=== PATIENT | female | born 2000 | race Caucasian/White ===

== ENCOUNTER 2022-03-15 19:08 | Outpatient (CLI) ==
[~2022-03-15] VITALS: Ht 182.9 cm; Wt 102.2 kg
[2022-03-15 19:28] VITALS: BP 114/51
[2022-03-15 20:56] LABS: AMPHETAMINES URINE REFLEX NEGATIVE (NEGATIVE); BARBITURATES URINE REFLEX NEGATIVE (NEGATIVE); BENZODIAZEPINES URINE REFLEX NEGATIVE (NEGATIVE); CANNABINOIDS URINE REFLEX NEGATIVE (NEGATIVE); COCAINE METABOLITE URINE REFLE NEGATIVE (NEGATIVE); METHADONE URINE REFLEX NEGATIVE (NEGATIVE); OPIATES URINE REFLEX NEGATIVE (NEGATIVE); PHENCYCLIDINE URINE REFLEX NEGATIVE (NEGATIVE)
[2022-03-15] MEDS ORDERED: CYCLOBENZAPRINE 5MG TABLET PO ONE (21:00)
== END 2022-03-15 21:02 | disposition home or self-care (01) ==
LOC: M LDO 19:08
PROVIDERS: ATTEND Obstetrics & Gynecology
DX: O26.893 Other specified pregnancy related conditions, third trimester (principal); Z3A.30 30 weeks gestation of pregnancy; R10.2 Pelvic and perineal pain
CPT/HCPCS: 59025; 76815; 80307; 81001; 87086; G0463

== ENCOUNTER 2022-05-13 19:46 | Outpatient (CLI) | payer OTHER ==
[~2022-05-13] VITALS: Ht 182.9 cm; Wt 111.4 kg
[2022-05-13 20:08] VITALS: BP 111/78
[2022-05-13] MEDS ORDERED: PNVTAB4 PO (22:01)
[2022-05-13] MEDS ORDERED: HOME MED LIST COMPLETE! XX SCH (22:05)
== END 2022-05-13 21:53 | disposition home or self-care (01) ==
LOC: M LDO 19:46
PROVIDERS: ATTEND Obstetrics & Gynecology
DX: O36.8130 Decreased fetal movements, third trimester, not applicable or unspecified (principal); Z3A.39 39 weeks gestation of pregnancy

== ENCOUNTER 2022-05-18 04:59 | Inpatient (IN) | payer OTHER ==
[~2022-05-18] VITALS: Ht 182.9 cm; Wt 109.7 kg
[2022-05-18] VITALS (38 sets, daily range): BP systolic 97–162; BP diastolic 54–102
[~2022-05-18 04:59] MED LIST: PNVTAB4 PO
[2022-05-18] MEDS ORDERED: FAMO10TA50 PO (05:41)
[2022-05-18] MEDS ORDERED: HOME MED LIST COMPLETE! XX SCH (05:45)
[2022-05-18] MEDS ORDERED: OXYTOCIN DRIP 30 UNITS in IV 1 EA IV SCH ×3 (05:50→22:05)
[2022-05-18] MEDS ORDERED: miSOPROStol 50MCG 1/2 TABLET PO ONE (05:50)
[2022-05-18 06:19] LABS: HEMATOCRIT 35.8 % (36.0-47.0); HEMOGLOBIN 12.3 g/dl (12.0-15.5); MEAN CORPUSCULAR HEMOGLOBIN 29.1 pg (27.0-33.0); MEAN CORPUSCULAR HGB CONC 34.4 g/dl (32.0-36.5); MEAN CORPUSCULAR VOLUME 84.6 fl (80.0-96.0); PLATELET COUNT, AUTOMATED 231 10^3/uL (150-450); RED BLOOD COUNT 4.23 10^6/uL (4.00-5.40); WHITE BLOOD COUNT 9.6 10^3/uL (4.0-10.0)
[2022-05-18] MEDS: LR 1,000 ML IV SCH ×4 (06:26→19:18)
[2022-05-18] MEDS ORDERED: FENTANYL 2MCG/ML ROPIVACAINE 0.2% IN 0.9% NACL 100ML IVBAG As Ordered ONE (13:38)
[2022-05-18] MEDS ORDERED: NALOXONE INJ 0.4MG/1ML VIAL (J2310 PER 1MG) IV PRN (13:45)
[2022-05-18] MEDS ORDERED: ONDANSETRON 4MG 2ML VIAL IV PRN (13:45)
[2022-05-18] MEDS ORDERED: diphenhydrAMINE 50MG/ML VIAL (J1200) IV PRN (13:45)
[2022-05-18] MEDS ORDERED: FENTANYL/ROPIVACAINE/NACL BAG 100 ML EPIDURAL SCH (13:45)
[2022-05-18] MEDS ORDERED: EPIDURAL/PCA KEYS XX PRN (13:45)
[2022-05-18] MEDS ORDERED: LR 500 ML IV PRN (13:45)
[2022-05-18] MEDS ORDERED: ePHEDrine SULFATE 25 MG/5 ML(5MG/ML) SYRINGE IVP PRN (13:45)
[2022-05-18] MEDS ORDERED: CALCIUM CARBONATE 500 MG CHEW U/D PO PRN (14:40)
[2022-05-18] MEDS ORDERED: ceFAZolin 2 GM/D5W 50 ML IV BAG (J0690 PER 500MG) As Ordered ONE (19:22)
[2022-05-18] MEDS ORDERED: LIDOCAINE 2% W/EPINEPHRINE 20ML VIAL **PRES FREE As Ordered ONE (19:23)
[2022-05-18] MEDS ORDERED: AZITHROMYCIN INJ 500MG VIAL As Ordered ONE (19:23)
[2022-05-18] MEDS ORDERED: BICITRA 30ML SOLN UDC PO ONE (19:25)
[2022-05-18] MEDS ORDERED: ceFAZolin SOD 2 GM in IV 1 EA IV ONE (19:25)
[2022-05-18] MEDS ORDERED: ACETAMINOPHEN 650 MG SUPP PR ONE (19:25)
[2022-05-18] MEDS ORDERED: AZITHROMYCIN INJ 500 MG, VIAL MATE ADAPTER 1 EACH in NS 250 ML IV ONE (19:25)
[2022-05-18] MEDS ORDERED: BUPIVACAINE HCL 0.25% 10ML VIAL SC ONE (19:25)
[2022-05-18] MEDS ORDERED: OXYTOCIN INJ 10 UNITS/ML VIAL (J2590) IV PRN (19:25)
[2022-05-18] MEDS ORDERED: OXYTOCIN INJ 10 UNITS/ML VIAL (J2590) As Ordered ONE ×2 (19:25→20:03)
[2022-05-18] MEDS ORDERED: OXYTOCIN DRIP 30 UNITS in IV 1 EA IV PRN ×4 (19:25)
[2022-05-18] MEDS ORDERED: TRANEXAMIC ACID INJection 1,000 MG in NS 100 ML IV PRN (19:25)
[2022-05-18] MEDS ORDERED: MORPHINE PRES-FREE INJ 10 MG/10 ML VIAL As Ordered ONE (19:42)
[2022-05-18] MEDS ORDERED: ONDANSETRON 4MG 2ML VIAL As Ordered ONE (19:52)
[2022-05-18] MEDS ORDERED: METOCLOPRAMIDE INJ 10MG/2ML VIAL (J2765 PER 1) As Ordered ONE (19:52)
[2022-05-18 19:57] LABS: CORD GAS ABE A -13.5; CORD GAS ABE V -12.2; CORD GAS HCO3 A 19.4 MEQ/L; CORD GAS O2 SAT A 26.7 %; CORD GAS O2 SAT V 37.4 %; CORD GAS PCO2 A 81.4 mmHg; CORD GAS PCO2 V 67.5 mmHg; CORD GAS PH V 7.067 UNITS; CORD GAS PO2 A 19.7 mmHg; CORD GAS PO2 V 23.6 mmHg; CORD GAS SBC A 12.9 MEQ/L; CORD GAS SBC V 13.9 MEQ/L; CORD GAS TCO2 A 21.9 MEQ/L; CORD GAS TCO2 V 21.1 MEQ/L
[2022-05-18] MEDS ORDERED: propofoL 200 MG/20 ML VIAL As Ordered ONE (19:59)
[2022-05-18 20:01] LABS: CORD GAS PH A 6.995 UNITS
[2022-05-18] MEDS ORDERED: KETOROLAC 60MG 2ML VIAL As Ordered ONE (20:16)
[2022-05-18] MEDS ORDERED: dexameTHASONE 4 MG/ML 1ML VIAL (J1100 PER 1MG) As Ordered ONE (20:22)
[2022-05-18] MEDS ORDERED: OXYTOCIN 30 UNITS IN 0.9% NaCl 500ML IV BAG (J2590) As Ordered ONE (21:14)
[2022-05-18] MEDS ORDERED: DOCUSATE SODIUM 100MG CAPSULE PO PRN (22:05)
[2022-05-18] MEDS ORDERED: PERCOCET 5MG/325MG TAB PO PRN ×2 (22:05)
[2022-05-18] MEDS ORDERED: ACETAMINOPHEN TAB 650MG DOSE (2X325MG) PO PRN (22:05)
[2022-05-18] MEDS ORDERED: ANUSOL HC CREAM 30GM TOP PRN (22:05)
[2022-05-18] MEDS ORDERED: RHOGAM 300 MCG (1500 IU) INJ (J2790) IM SCH (22:05)
[2022-05-18] MEDS ORDERED: OXYTOCIN INJ 10 UNITS/ML VIAL (J2590) IV ONE (22:05)
[2022-05-18] MEDS ORDERED: METHYLERGONOVINE MALEATE 0.2 MG TAB PO PRN (22:05)
[2022-05-18] MEDS ORDERED: SIMETHICONE 80MG CHEW TAB PO PRN (22:05)
[2022-05-18] MEDS ORDERED: METHYLERGONOVINE MALEATE 0.2 MG/ML VIAL (J2210) IM PRN (22:05)
[2022-05-18] MEDS ORDERED: MOM 30ML SUSPENSION UDC PO PRN (22:05)
[2022-05-18] MEDS ORDERED: OXYTOCIN DRIP 30 UNITS in IV 1 EA IV ONE (22:05)
[2022-05-18] MEDS ORDERED: IBUPROFEN 600MG TAB PO PRN (22:30)
[2022-05-19] VITALS (7 sets, daily range): BP systolic 103–134; BP diastolic 56–73
[2022-05-19] MEDS: ACETAMINOPHEN 500 MG TAB PO PRN ×2 (00:22→22:43)
[2022-05-19] MEDS: LR 1,000 ML IV SCH ×3 (02:00→14:05)
[2022-05-19] MEDS ORDERED: ONDANSETRON 4MG 2ML VIAL IV PRN (03:30)
[2022-05-19] MEDS ORDERED: ONDANSETRON 4MG 2ML VIAL As Ordered ONE (03:30)
[2022-05-19] MEDS: KETOROLAC 30 MG/ML 1ML VIAL IV SCH ×3 (03:37→15:33)
[2022-05-19 07:52] LABS: HEMATOCRIT 29.5 % (36.0-47.0); HEMOGLOBIN 9.8 g/dl (12.0-15.5); MEAN CORPUSCULAR HEMOGLOBIN 28.9 pg (27.0-33.0); MEAN CORPUSCULAR HGB CONC 33.2 g/dl (32.0-36.5); PLATELET COUNT, AUTOMATED 162 10^3/uL (150-450); RED BLOOD COUNT 3.39 10^6/uL (4.00-5.40); WHITE BLOOD COUNT 15.9 10^3/uL (4.0-10.0)
[2022-05-19] MEDS: PRENATAL VITAMINS CHEWABLE TABLET PO SCH ×2 (09:53→09:58)
[2022-05-19] MEDS ORDERED: IBUPROFEN 600MG TAB PO PRN (22:30)
[2022-05-20 02:00] VITALS: BP 101/55
[2022-05-20 06:00] VITALS: BP 117/71
[2022-05-20] MEDS ORDERED: IBUP-1022 PO (08:32)
[2022-05-20] MEDS ORDERED: COLA100C5 PO (08:32)
[2022-05-20] MEDS ORDERED: PRENCHW PO (08:32)
[2022-05-20] MEDS ORDERED: PERCOCET PO (08:32)
[2022-05-20] MEDS: ACETAMINOPHEN 500 MG TAB PO PRN (08:54)
[2022-05-20] MEDS: PRENATAL VITAMINS CHEWABLE TABLET PO SCH (08:55)
[2022-05-20] MEDS ORDERED: MEASLES,MUMPS,RUBELLA VACCINE INJ (MMR-II) (90707) SC.IMMUN ONE (09:00)
[2022-05-20 10:00] VITALS: BP 123/71
== END 2022-05-20 12:10 | disposition home or self-care (01) | DRG 773 ==
LOC: M LDO 04:59 → M LDI 05:46 → M OBS 21:57
PROVIDERS: ADMIT Obstetrics & Gynecology; ATTEND Obstetrics & Gynecology
PROC: 10D00Z1 Extraction of Products of Conception, Low, Open Approach (ICD-10-PCS; principal; 2022-05-18 19:35)
DX: O76 Abnormality in fetal heart rate and rhythm complicating labor and delivery (principal); Z37.0 Single live birth; Z3A.39 39 weeks gestation of pregnancy; O26.02 Excessive weight gain in pregnancy, second trimester